=== PATIENT | male | born 1965 | race Caucasian/White ===

== ENCOUNTER 2017-08-05 15:25 | Inpatient (IN) ==
[2017-08-05] MEDS ORDERED: ONDANSETRON 4 MG/2 ML INJECTION IVP PRN (16:11)
[2017-08-05] MEDS ORDERED: ERTAPENEM 1 G in NS 50 ML IV ONE (16:15)
[2017-08-05 16:16] VITALS: BMI 31.3
[2017-08-05] MEDS: MORPHINE SULFATE 4mg INJECTION IVP PRN ×2 (16:24→17:37)
[2017-08-05] MEDS: LR 1,000 ML IV SCH ×3 (16:24→20:30)
[2017-08-05] MEDS ORDERED: FentaNYL 100 MCG/2 ML INJECTION ONE ×2 (17:11→18:54)
--- NOTE | 2017-08-05 17:11 | Anesthesia Preoperative Report ---
Anesthesia Preoperative Record - Date and Time Date: 08/05/17 Preoperative Diagnosis: appendicitis Proposed Procedure: Lap Appy NPO Since Date: 08/05/17 NPO Since Time: 12:00 (small glass of water and small cookie bar) Allergies/Adverse Reactions: Allergies Allergy/AdvReac Type Severity Reaction Status Date / Time No Known Allergies Allergy Verified 08/05/17 16:28 - Vital Signs Vital Signs: Temperature 99.2 F 08/05/17 16:19 Pulse Rate 102 H 08/05/17 16:19 Respiratory Rate 24 08/05/17 16:19 Blood Pressure 135/84 08/05/17 16:19 Pulse Oximetry 96 08/05/17 16:19 Height and Weight: Height 5 ft 10 in Weight 99 kg Body Mass Index 31.3 - Medications Inpatient Medications: Current Medications Lactated Ringer's (Lactated Ringers) 1,000 mls @ 100 mls/hr IV .Q10H RAQUEL Last Admin: 08/05/17 16:24 Dose: 100 mls/hr Lactated Ringer's (Lactated Ringers) 1,000 mls @ 30 mls/hr IV .Q24H RAQUEL Morphine Sulfate (Morphine Sulfate Inj) 1 - 4 mg IVP Q1H PRN PRN Reason: Pain Last Admin: 08/05/17 16:24 Dose: 2 mg Ondansetron HCl (Zofran) 4 mg IVP Q6H PRN PRN Reason: Nausea Home Medications: Home Medications Medication Instructions Recorded Confirmed Type No known Home medications [No home 08/05/17 08/05/17 History meds] Is Patient on Beta Dave?: No - Medical History Respiratory: DENIES: Asthma, Bronchitis, Chronic Obstructive Pulmonary Disease (COPD), Dyspnea, Orthopnea, Pulmonary Embolism, Pneumonia, Upper Respiratory Infection, Pulmonary Edema, Sleep Apnea, Tuberculosis, Other Cardiovascular: DENIES: Abnormal EKG, Angina, Arrhythmia, Congestive Heart Failure, Coronary Artery Disease, Heart Murmur, Hypertension, Hypotension, High Cholesterol, Myocardial Infarction, Rheumatic Fever, Valvular Heart Disease, Other Gastrointestional: DENIES: Obstructive Bowel, Hepatitis, Cirrhosis, Nausea or Vomiting Present, Gastroesophageal Reflux Disease, Gastrointestinal Bleeding, Hiatal Hernia, Ulcer , Morbid Obesity, Other Neuro/Musculoskeletal: Denies: HX.MS.OSAR, Back Problems, Cerebrovascular Accident, Depression, Headaches, Loss of Consciousness, Muscle Weakness, Neuromuscular Disorder, Paralysis, Paresthesia, Syncope, Seizures, Other Renal/Endocrine: DENIES: Diabetes Mellitus Type 1, Diabetes Mellitus Type 2, Renal Failure, Dialysis, Thyroid Disease, Weight Loss, Weight Gain, Other Other History: Reports: Anesthesia Reactions - Surgical History HEENT Surgeries: Reports: Eye Surgery (Right eye removed) Anesthesia Reactions: None Hx Family Anesthesia Reaction: No History of Motion Sickness: No - Social History Smoking Status: Never smoker Substance Use Type: does not use - Pertinent Findings EKG: Sinus Rhythm - Physical Exam Respiratory Exam: Present: lungs clear, bilateral breath sounds equal Cardiovascular Exam: Present: regular rate and rhythm, no murmur - Airway Assessment Mallampati Score: II TMD: 3 Fingerbreadths Neck Extension: fair Overall Assessment: may be difficult mask vent (gutierrez), may be difficult intubation (limited extension) - ASA ASA Score: 2, E - Plan Anesthesia: General Inhalation Gases - Discussion Discussion: Discussed risks/options/alternatives of anesthesia and questions answered. Patient consents. Nursing pain assessment noted. Present for Discussion: spouse Attestation Statement: Prior to the delivery of any anesthetic medication, I examined the patient, developed the plan, obtained the patient's consent and discussed the risk and benefits of the procedure with the patient/guardian. - Additional Information Seen by Anesthesia: Yes
[2017-08-05] MEDS ORDERED: ENOXAPARIN 40 MG/0.4 ML INJECTION SQ ONE (17:41)
[2017-08-05] MEDS ORDERED: BUPIVACAINE 0.5%/EPI 1:200,000 INJ 30ml SDV ONE (17:48)
[2017-08-05] MEDS ORDERED: SUGAMMADEX 200mg/2ml INJECTION IVP ONE ×5 (19:19→20:03)
--- NOTE | 2017-08-05 19:20 | General Surgery Procedure Note ---
Date of Procedure: 08/05/17 Surgeon: Skye Featherer: Gadiel Baig APRN Postoperative Diagnosis: acute ruptured appendicitis with abscess Procedure: Laparoscopic appendectomy Estimated Blood Loss: See Anesthesia Record.
[2017-08-05] MEDS ORDERED: METOPROLOL 5mg/5ml INJECTION IVP ONE (19:47)
[2017-08-05] MEDS ORDERED: NALOXONE 0.4 MG/ML INJECTION ONE (19:52)
--- NOTE | 2017-08-05 19:52 | Consultation ---
DATE OF CONSULTATION 08/05/2017 FINDINGS Mr. Khan is a 52-year-old gentleman whom I was asked to see today by his primary care physician, Dr. Hamilton Talavera, secondary to the patient's history and physical findings of right lower quadrant abdominal pain in conjunction with a CT scan revealing evidence for appendicitis. Upon questioning Mr. Khan he informs me that he began to notice that he was having a component of abdominal pain on Thursday, about five days ago. Patient states that initially he thought perhaps he had the flu. He was having some loose stools in conjunction with this abdominal pain. Did have a component of some nausea. The patient states that over the last several days his pain has become more localized to his right lower quadrant. Patient states that today he was in severe pain. Pain was made worse with any type of movement. Pain is made worse when " someone pushes on his belly." Pain has been somewhat alleviated with pain medications and is improved by lying still. He has been nauseated but has not had emesis today. PAST MEDICAL HISTORY CHRONIC ILLNESSES/SYSTEM DISORDERS 1. History for traumatic injury to right eye requiring multiple prior ophthalmic surgeries and eventually extraction of right eye. The patient informs me that in 2004 following several of his eye surgeries he was "lying down in the hospital a lot" and had developed a blood clot at that time. 2. History for Clostridium difficile colitis. 3. History for right distal radius fracture. PAST SURGICAL HISTORY Placement of Mya filter. Bilateral carpal tunnel release. MEDICATIONS None. ALLERGIES No known drug allergies. SOCIAL HISTORY The patient denies alcohol or tobacco use. FAMILY HISTORY His father in his mid-60s as a result of "heart problems". Patient states his mother as a result of "female cancer." REVIEW OF SYSTEMS Complete review of systems was undertaken with the patient and was essentially negative except as stated in Findings section and Past Medical History section for Constitutional, HEENT, Cardiac, Respiratory, GI, , Musculoskeletal, Hematology/Oncology, Endocrine, and Psychiatric. PHYSICAL EXAMINATION GENERAL: Mr. Khan is a 52-year-old gentleman who does appear to be in a fair amount of discomfort. He does not appear to be in acute distress. VITAL SIGNS: Temperature 99.2, pulse 102, respirations 24, blood pressure 135/ 84, SAO2 96% on room air. HEENT: Left pupil was reactive to light and accommodation. The patient has a prosthetic right eye. NECK: Supple without lymphadenopathy. CHEST: Clear to auscultation bilaterally. HEART: Regular rate and rhythm. Normal S1 and S2 without gallops, murmurs or clicks. ABDOMEN: Palpation of the abdomen does indeed reveal severe localized tenderness to his right lower quadrant. Does have both voluntary and involuntary guarding. Does have a component of some peritoneal signs with rebound tenderness noted within the right lower quadrant. I did not appreciate any evidence for hepatosplenomegaly or other abnormal masses. EXTREMITIES: Without clubbing, cyanosis, or edema. NEURO: Cranial nerves II-XII grossly intact. Patient is without focal motor or sensory deficits. LABORATORY/RADIOGRAPHIC EVALUATION The patient had a CMP obtained earlier today that was essentially within normal limits. The patient had a CBC that revealed a component of some leukocytosis with white count of 12.9. Hemoglobin was normal at 14.1. Platelets were normal 198,000. The patient had a CT scan of his abdomen and pelvis that did reveal evidence for appendicitis with periappendiceal inflammation and developing phlegmon. Findings were suspicious for that of a ruptured appendix. Inflammation did extend extraperitoneally into the pelvis and superiorly to the inferior aspect of the liver. There was a component of some free fluid noted within the pelvis. ASSESSMENT 52-year-old gentleman acute appendicitis. PLAN Laparoscopic appendectomy, possible open. I informed the patient that at this time I would recommend proceeding with surgical intervention for his suspected appendicitis. His clinical history, physical findings, and radiographic findings are all indicative for appendicitis. I informed the patient that there is new evidence in the literature that one can manage early appendicitis with antibiotics in a nonoperative fashion. I would not recommend nonoperative intervention his situation and I do feel that he has andrea peritonitis and would recommend proceeding with surgical intervention. I did discuss in detail with the patient and his what a laparoscopic appendectomy entailed and its associated risks which included but were not inclusive of bleeding, infection, as well as potential conversion to open procedure. The patient has been placed on broad-spectrum antibiotics and currently is receiving Invanz. Will place SCDs prior to induction. Will also give the patient an injection of Lovenox given his prior history for DVT in the past. Will continue with Lovenox postoperatively. MARGIE
[2017-08-05] MEDS ORDERED: PROPOFOL 20 ML ONE (20:33)
[2017-08-05] MEDS ORDERED: PROPOFOL 0 MG/0 ML VIAL ONE (20:33)
[2017-08-05] MEDS ORDERED: SUCCINYLCHOLINE 20mg/mL 10mL INJECTION ONE (20:34)
[2017-08-05] MEDS ORDERED: HYDROCODONE/APAP 5mg/325mg TABLET PO PRN (21:01)
[2017-08-05] MEDS ORDERED: METOCLOPRAMIDE 10mg/2ml INJECTION IVP PRN (21:01)
[2017-08-05] MEDS ORDERED: BUPIV ID ONE (21:24)
[2017-08-05] MEDS ORDERED: EPI ID ONE (21:24)
[2017-08-05] MEDS ORDERED: [UNRECOGNIZED DRUG - OTHER] ID ONE (21:24)
[2017-08-05] MEDS ORDERED: MIDAZOLAM 2mg/2ml INJECTION IVP PRN (21:27)
[2017-08-05] MEDS: MIDAZOLAM 5mg/5ml INJECTION IVP PRN ×3 (21:32→22:36)
--- NOTE | 2017-08-05 21:35 | Consult Note ---
Consult Information - Data of Consult Consult date: 08/05/17 Requesting Physician: Jb Cheung MD Primary Care Provider: Dannie Talavera MD Family Provider: Dannie Talavera MD - Consult Narrative Reason for consult: Intubated, in ICU following lap appendectomy History of present illness: This is a 52 y/o who presented to PCP w/ abdominal pain and concern for acute appendictis and PCP referred to Dr. Cheung for further evaluation and management. Patient taken to OR today per Dr. Cheung and post-surgery was extubated and then re-intubated d/t concerns re: patient being slow coming out of anesthesia and inability to protect his airway. Purportedly patient has family h/o prolonged sedation following surgery/anesthesia and has at least one sibling and another family member w/ pseudocholinesterase deficiency. Patient after intubation was transferred to the CCU. Currently he is intubated on SIMV, Vt of 600 and FiO2 of 50% and on LR at 100 cc/hour and Ertapenem IV q 24 hours. Current temp = 99.4F. UOP approx. 50 cc/hour The Hospitalist team has been consulted by Dr. Cheung to medically manage in the ICU Past Medical History Patient Stated Medical History Cerebrovascular Accident No Paralysis No Seizures No Syncope No Other HEENT Yes: RIGHT EYE REMOVED D/T INJURY Angina No Cardiac Arrhythmia No Congestive Heart Failure No Coronary Artery Disease No Heart Murmur No Hypertension No Hypotension No Myocardial Infarction No Rheumatic Fever No Valvular Heart Disease No Other Cardiology No Asthma No Bronchitis No Chronic Obstructive Pulmonary No Disease (COPD) Pneumonia No Pulmonary Edema No Pulmonary Embolism No Sleep Apnea No Tuberculosis No Other Respiratory No Diabetes Mellitus Type 1 No Diabetes Mellitus Type 2 No Cirrhosis No Gastroesophageal Reflux No Disease Gastrointestinal Bleeding No Hepatitis No Hiatal Hernia No Obstructive Bowel No Ulcer No Other GI No Hx Kidney Stones Yes Osteoarthritis No Other Musculoskeletal No Anesthesia Reactions Yes Depression No Medical History Updates: Patient had injury to right eye in 2004 resulting from trauma/barbed wire in the right orbit - had surgery and eye removed and had prolonged hospitalization and developed DVT and nephrolithiasis during that time. Was on short duration of anticoagulation and had a Mya filter placed. Family History Updates: Patient's sibling and ? of other family members w/ pseudocholinesterase deficiency - Social History Smoking status: Never smoker Review of Systems ROS unobtainable: due to endotracheal tube Medications Home Medications Medication Instructions Recorded Confirmed Type No known Home medications [No home 08/05/17 08/05/17 History meds] Allergies Allergy/AdvReac Type Severity Reaction Status Date / Time No Known Allergies Allergy Verified 08/05/17 16:28 Exam Vital Signs: Temperature 99.2 F 08/05/17 16:19 Pulse Rate 102 H 08/05/17 16:19 Respiratory Rate 24 08/05/17 16:19 Blood Pressure 135/84 08/05/17 16:19 Pulse Oximetry 96 08/05/17 16:19 Telemetry Rhythm: Sinus Rhythm Height/Weight/BMI: Height 1.78 m Weight 99 kg Body Mass Index 31.3 - Constitutional Present: well nourished, well developed Comments: Intubated, sedated - Routine HEENT Exam Head: Present: normocephalic Eye: Present: PERRL (left eye) ENT: Present: mucous membranes moist, nares patent - Routine Neck Exam Present: supple, trachea midline. Absent: JVD - Routine Respiratory Exam Present: patient mechanically ventilated, CTA bilaterally. Absent: rhonchi, wheezes - Routine Cardiovascular Exam Present: RRR, S1, S2 - Routine Abdominal Exam Present: soft, normoactive bowel sounds, non distended - Routine Extremities Exam Absent: cyanosis, clubbing, edema - Routine Skin Exam Present: intact. Absent: cyanosis, erythema - Routine Neurological Exam Intubated and sedated; shakes head no when asked if in any pain Results - Labs CBC & Chem 7: 08/06/17 04:04 08/06/17 04:05 Assessment and Plan Assessment and Plan: A/ 1) Acute Appendicitis with rupture s/p Appendectomy per Dr. Cheung 2) Re-intubated after post-surgical extubation d/t sedation and concern re: protecting the airway 3) H/o trauma to Right eye s/p removal 4) H/o nephrolithiasis 5) H/o DVT d/t prolonged immobilization following trauma and surgery to right eye and prolonged hospitalization and has [place] filter in place. Plan: Continue ICU support continue vent mgt - SIMV 10, 50% FiO2, PEEP of 5, Vt of 600, pS of 8 CXR portable one view now to confirm tube placement ABG now Wean O2 to keep sats >= 92% Lovenox SQ 40 mg once daily Protonix 40mg IV QD SCDs Versed and Fentanyl as directed prn sedation for vent management overnight Lucia Catheter insertion Soft restraints in place labs in AM - CBC, CMP, Mg I have seen the patient in consult, he is currently sedated and intubated and no family present. Hospitalist team to follow along w/ Dr. Cheung. DVT Prophylaxis: SCD's, Lovenox GI Prophylaxis: Protonix Resuscitation Status: Full Code - Physician Narrative Physician: Cindy Monreal MD Narrative: Date: 08/06/17 Time: 1729 Dr. Kessler's note reviewed. Mr. Khan interviewed and examined. CC: Failed intubation HPI: Quinton is a 52-year-old male who underwent laparoscopic appendectomy yesterday evening by Dr. Cheung following 3-4 days of nausea/vomiting followed by increasing abdominal pain. He was evaluated by Dr. Talavera in the office yesterday and referred to the emergency room and subsequently taken to the operating room. He was initially extubated at the end of surgery but reintubated due to concern of pseudocholinesterase deficiency and inability to protect airway and maintain adequate ventilation. The patient was successfully extubated this morning and was on room air when seen earlier this afternoon. He complained of sore throat but denied dyspnea other than pain with cough and deep inspiration. Having no nausea, is tolerating sips of fluid and is passing gas. He was afebrile overnight and has no complaints at the time of reassessment today. PH/SH/FH: agree with that recorded above by Dr. Kessler. In addition he describes no history of alcohol or illicit drug use and is employed at [employer]. His is his alternate decision maker and he is a full code. ROS: 10 point review negative outside of preceding nausea and vomiting for several days prior to acute evaluation. EXAM: General- HEENT-right pupil 3 mm, reactive to light; left pupil 2 mm-prosthetic eye; normal right eye movements-left eye movements slightly delayed and incomplete, conjunctiva clear, sclera anicteric, conjugate gaze, facial structures symmetric , oropharynx clear except a few petechiae on the soft palate posteriorly, neck supple and without adenopathy Lungs-respirations nonlabored, good airflow breath sounds clear Cardiac-regular rhythm, S1-S2 Abd-soft, mildly distended, surgical dressings in place, moderately tender to palpation, bowel sounds present Ext-without edema Skin-without rash or evidence of wounds excluding surgical sites which are dressed Neuro-facial structure symmetric, tongue midline; motor tone normal, MAEW, sensation intact 4 extremities to light touch Psych-calm, cooperative DATA: White count 9.6, hemoglobin 12.7, platelet count 166,000. CMP unremarkable. Pseudocholinesterase pending. Chest x-ray taken this morning demonstrated decreased total lung volume on the ET tube was well-positioned prior to extubation. There was bibasilar atelectasis. 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 Encouraged to continue use of incentive spirometry. Discussed with Dr. Cheung-have asked nursing to initiate clear liquids and advance diet as tolerated. Urine is very dark and urine output has been borderline thus far. Patient had 3- 4 days of nausea/vomiting prior to hospitalization and is likely somewhat prerenal. IV fluids increased to 200 mL per hour for 1 L and will then decrease back to 100 mL per hour. Reassess electrolytes/renal function in the morning. Minor postoperative blood loss anemia. Will review transfer records from Dr. Talavera's office as I suspect hemoglobin was obtained prior to transfer here. Given surgical description of patient's gallbladder anticipate IV antibiotics will be continued for 1 or 2 additional days before conversion to oral antibiotics. Hospital Course Summary Disclaimer: The visit summary below is not to be considered part of the above Progress Note.
[2017-08-05] MEDS ORDERED: FALL RISK - PHARMACY CONSULT XX ONE (23:31)
[2017-08-06] MEDS: MIDAZOLAM 5mg/5ml INJECTION IVP PRN ×5 (00:17→05:15)
[2017-08-06] MEDS: FentaNYL 250 MCG/5 ML INJECTION IVP PRN ×3 (00:20→05:18)
[2017-08-06] MEDS: KETOROLAC 30 MG/ML INJECTION IVP PRN ×3 (07:21→20:48)
--- NOTE | 2017-08-06 07:30 | Operative Note ---
DATE OF SERVICE 08/05/2017 Surgeon Jb Cheung MD BR[employer]IGGER Gadiel Baig APRN PREOPERATIVE DIAGNOSIS Appendicitis. POSTOPERATIVE DIAGNOSIS Perforated appendicitis. PROCEDURE Laparoscopic appendectomy. ANESTHESIA General endotracheal. EBL AND FLUIDS Please see chart. BRIEF HISTORY/INDICATIONS Mr. Khan is a 52-year-old gentleman who I was asked to see today by his primary care physician, Dr. Hamilton Talavera, of [place], [place]. The patient had a classic clinical history, physical findings and CT scan findings for appendicitis. As a result of the above indications, it was recommended to the patient that he undergo surgical intervention. For completeness please refer to notes included in the patient's chart. FINDINGS Upon laparoscopy the patient was found to have an essentially gangrenous appendix. Appendix was adhered along the right lateral abdominal wall. Appendix had perforated and "sealed itself off." There was an associated phlegmonous-like process present as noted on CT scan. A standard appendectomy was able be completed without incident. Otherwise, the small bowel, omentum, colon, peritoneal surfaces which were visualized were within normal limits. DESCRIPTION OF PROCEDURE After informed consent was obtained, the patient was brought to the operative suite and placed on the table in a supine fashion. The abdomen was then prepped and draped in sterile fashion. Formal time-out was then completed. One could see the patient had an umbilical hernia. I elected to use the umbilical hernia as the camera port site. 0.25% Marcaine with epinephrine was injected just beneath the level of the umbilicus. A 3 cm curved incision was then made through the area of analgesia. Dissection was carried down through the deep subcuticular tissues. Base of the umbilicus was then dissected off of the underlying hernia sac. Hernia sac and the omentum that was present in the hernia sac was returned back through a fascial defect that was on the order of about 2 cm in diameter. Fascial defect was dissected out circumferentially. Multiple single interrupted sutures of 0-PDS suture were then placed along the edge of the fascial defect. Next, a 12 mm Kayy port was then placed through the fascial defect into the peritoneum. Pneumoperitoneum was established to a patient pressure of 15 mmHg utilizing carbon dioxide. An additional 5 mm port was then placed within the suprapubic region. An additional 12 mm port was then placed under direct visualization as well within the right upper quadrant of the abdomen. Each port site was preinjected with 0.25% Marcaine with epinephrine and placed under direct visualization. The patient was then placed in Trendelenburg position and rotated towards his left. Attention was then focused to the right lower quadrant. One could see that there was a phlegmonous -like process present with the right colon being adhered to the lateral abdominal wall as well as along the anterior abdominal wall. Colon was dissected away bluntly with a suction tip catheter. One could then see the appendix adhered along the right lateral pelvic wall as well as along the right lateral abdominal wall. The appendix was then began to be dissected away from the abdominal wall. Axel purulent material and stool was then obtained. The patient had a perforation that was contained adjacent to the colon. One could see a hole within the appendix about a [id number] away from the base of the appendix. The appendix was grasped and was quite friable in nature. The base of the appendix was somewhat retrocecal in its location. The white line of Toldt was incised and the right colon was reflected medially so that the base of the appendix could be better visualized. A small opening was then created within the mesoappendix adjacent to the base of the appendix. The base of the appendix appeared to be viable without gangrenous or marked inflammatory changes. Linear stapler with a GI load was then placed across the base of the appendix and fired. The mesoappendix was quite thickened as a result of this phlegmonous process. I elected not to try to divide the entire mesoappendix with the linear stapler with the vascular load. Perhaps three-fourths of the mesoappendix was divided sequentially between Horizon hemoclips. The remaining 25% of the mesoappendix, once it had been "thinned out" and was more visible, was then divided by placing a linear stapler with a vascular load across the remaining mesoappendix and firing. The appendix was then placed within a laparoscopic retrieval bag and removed from the infraumbilical port site. Irrigation was performed and all purulent and fecal-like material was irrigated and suctioned till clear. Given the peritoneal contamination, I elected to place a 19-Andorran drain. 19-Andorran drain was placed through the 12 mm port within the right upper quadrant and allowed to lay adjacent to the right pericolic gutter and the tip of the drain was placed within the pouch of Lupillo /pelvis. Prior areas of dissection were inspected and found to be hemostatic in nature. Attention was directed towards closure. Ports were removed under direct visualization. A drain was secured to the anterior abdominal wall with 2 -0 Prolene. Once the ports had been removed under direct visualization, the previously placed simple interrupted sutures of 0-PDS were then tied sequentially resulting in closure of the fascial defect at the level of the umbilicus. Base of the umbilicus was then imbricated to the underlying fascia. First, a small subcuticular purchase at the base of the umbilicus was obtained followed by a small purchase of the fascia. All skin incisions were closed with leena. The patient is in the process of awakening from his anesthetic and will be sent back to recovery room once deemed in stable condition. Additionally, it should be noted that Gadiel Baig APRN, was present throughout the entire case and played a pivotal role in providing assistance and exposure during the course of the procedure. MARGIE
--- NOTE | 2017-08-06 08:02 | XRay Report ---
Indication: ETT placement PROCEDURE: XR chest 1V: Encounter: Initial Comparison: None Findings: Endotracheal tube in place with the tip projecting 3.3 cm above the cyril. Lungs are hypoinflated with basilar atelectasis. No gross pneumothorax on this somewhat upright view. Possible small left effusion. Cardiac silhouette is mildly enlarged. Pulmonary vascularity cannot be evaluated on this semiupright view. Impression: Endotracheal tube tip projects in appropriate position. There is a preliminary report by virtual radi[facility]. .
[2017-08-06] MEDS: LR 1,000 ML IV SCH ×5 (08:11→23:19)
[2017-08-06] MEDS: ERTAPENEM 1 G in NS 50 ML IV SCH (08:13)
[2017-08-06] MEDS: PANTOPRAZOLE 40 MG INJECTION IVP SCH (08:14)
[2017-08-06] MEDS: ENOXAPARIN 40 MG/0.4 ML INJECTION SQ SCH (08:14)
--- NOTE | 2017-08-06 08:29 | XRay Report ---
Indication: intubated; bibasilar atelectasis vs. Infiltrate PROCEDURE: XR chest 1V: Encounter: Initial Comparison: August 05, 2017 Findings: Endotracheal tube is stable in position. Lungs remain hypoinflated with left lower lobe probable atelectasis. No significant pleural fluid. No gross pneumothorax. Heart size and mediastinal contours are stable. Impression: Continued left basilar probable atelectasis. .
[2017-08-06] MEDS: FentaNYL 100 MCG/2 ML INJECTION IVP PRN ×3 (09:59→16:11)
--- NOTE | 2017-08-06 13:08 | Anesthesia Postoperative Note ---
- Date and Time Date: 08/06/17 Time: 13:07 - Status Patient Participated in Evaluation: Patient Participated in Person Vital Signs: Temperature 98 F 08/06/17 12:00 Pulse Rate 79 08/06/17 12:45 Respiratory Rate 28 H 08/06/17 12:45 Blood Pressure 118/68 08/06/17 12:00 Pulse Oximetry 96 08/06/17 12:45 Respiratory Function: Airway Patent, Regular Respirations Cardiovascular Function: Regular Pulse EKG: Sinus Rhythm Mental Status: Alert and Oriented Pain Intensity: 0 Hydration: IV Infusing Complications During Recover: None Apparent Post Anesthesia Care Notes: S/ P Appendectomy. Pt had to be on vent overnight due to Pseudocholinesterace Deficiency. Instructed pt to report this to future anesthesia providers. Succinylcholine prolonged metabolism. - Follow-Up Instructions Instructions: Per Surgeon
--- NOTE | 2017-08-06 15:37 | Progress Note ---
DATE OF SERVICE 08/06/2017 FINDINGS Mr. Khan was seen on afternoon rounds. He states that his abdomen was feeling significantly better. He is having less pain. He states that he feels "stronger." EXAM VITAL SIGNS: Afebrile, normotensive. Please refer to EMR. ABDOMEN: Soft. Minimal incisional tenderness. No evidence for guarding or rebound. LABORATORY/RADIOGRAPHIC EVALUATION The patient had a CBC today that was unremarkable. White count is now down to 9.6. Hemoglobin is stable at 12.7. CMP obtained and found to be without marked abnormalities. ASSESSMENT 52-year-old gentleman status post laparoscopic appendectomy secondary to perforated appendicitis. Patient with possible pseudocholinesterase deficiency. The patient required prolonged mechanical ventilation postoperatively. PLAN The patient was extubated earlier today. After discussion with family members there is some questionable family history for pseudocholinesterase deficiency. We will order appropriate lab work to rule in or rule out this process with more certainty. Will go ahead and transfer the patient out to the surgical floor. Will advance diet as tolerated. Will continue with broad-spectrum antibiotics. The patient may be able to be discharged tomorrow pending his clinical progress. MARGIE
--- NOTE | 2017-08-06 18:09 | Progress Note ---
Progress Note: Mr. Khan was reevaluated postextubation. Respiratory status is stable. Pseudocholinesterase level pending. Please see my addendum to the consult note written last night for details.
[2017-08-07] MEDS: FentaNYL 100 MCG/2 ML INJECTION IVP PRN (02:00)
[2017-08-07] MEDS: LR 1,000 ML IV SCH (03:29)
[2017-08-07] MEDS: KETOROLAC 30 MG/ML INJECTION IVP PRN (03:34)
[2017-08-07] MEDS ORDERED: IBUPROFEN 600 MG TABLET PO PRN (07:25)
[2017-08-07] MEDS: ERTAPENEM 1 G in NS 50 ML IV SCH (09:01)
[2017-08-07] MEDS: ENOXAPARIN 40 MG/0.4 ML INJECTION SQ SCH (09:01)
[2017-08-07] MEDS: PANTOPRAZOLE 40 MG INJECTION IVP SCH (09:02)
--- NOTE | 2017-08-07 11:31 | General Surgery Progress Note ---
Subjective Narrative: He is still feeling weak, has not ambulated yet today. States his RLQ pain is "nothing like" his pre-admission pain. He is complaining of incisional pain with activity and is very slow and cautions with any activity. Slowly and carefully removing the tape from the drain site was very painful, skin is very sensitive. He ate a regular breakfast without difficulty and has had several doses of Fentanyl, and is requesting a pain pill. Lucia is still in, output is good, color medium stephan. - Vital Signs Last Vital Signs Temp 99.1 F 08/07/17 09:13 Pulse 76 08/07/17 09:13 Resp 16 08/07/17 09:13 BP 145/76 H 08/07/17 09:13 Pulse Ox 98 08/07/17 09:13 - Laboratory Result Diagrams: 08/07/17 07:45 08/06/17 04:05 Laboratory Tests 08/06/17 12:07 Pseudocholinesterase Pending - Abnormal Exam Abdominal: voluntary guarding (quite fearful of anticipated pain) - Normal Exam General: awake, alert, oriented Abdominal: soft, non-tender (with lateral palpation and pelvic rocking), incision(s) (CDI leena in tact), other (JACINDA with serosangouinous fluid) Assessment and Plan (1) Acute appendicitis with rupture Current Visit: Yes Status: Acute (2) History of DVT of lower extremity Current Visit: Yes Status: Acute (3) Respiratory failure requiring intubation Current Visit: Yes Status: Acute Plan: He has a family history of pseudocholinesterase deficiency, his response postop was consistent with pseudocholinesterase decency, requiring re-intubation. The lab has been sent the this, results are pending. He was made inpatient when re-intubated and transferred to CCU He still feels weak, has not ambulated yet, only transferred from bed to wheelchair. JACINDA with serosanguineous fluid. He had a dose of Invanz this morning will change this to Augmentin starting tomorrow. Will re-evaluate this afternoon regarding discharge stability. Reported to Dr. Jeane Talavera's office regarding surgical findings, re-intubation, and the pseudocholinesterase test still pending. They will do a routine post hospital visit 08/18 and discuss the pseudocholinesterase test results. Hospital Course Summary Disclaimer: The visit summary below is not to be considered part of the above Progress Note. Hospital Course: 08/05/2017 Lap appy, ruptured appendix. Had to be re-intubated post op, transferred to CCU. 08/06 POD #1 Extubated this am. stable, transferred to surgical floor. 08-07-2017 Surgery note: He is weak this morning. He has a family history of pseudocholinesterase deficiency, his response postop was consistent with pseudocholinesterase decency , requiring re-intubation. The lab has been sent the this, results are pending. He had a dose of Invanz this morning will change this to Augmentin starting tomorrow. Will re-evaluate this afternoon regarding discharge stability. Reported to Dr. Jeane Talavera's office regarding surgical findings, re-intubation, and the pseudocholinesterase test still pending. They will do a routine post hospital visit 08/18 and discuss the pseudocholinesterase test results.
--- NOTE | 2017-08-07 11:46 | Progress Note ---
- Date 08/07/17 Subjective: Patient is seen lying in bed this morning. He reports he is doing well. He is only having a mild amount of pain in the right upper quadrant which he thinks is related to tape. No chest pain, cough, nausea or vomiting. He reports his appetite is good. He ate 100% of breakfast. Having some gas after breakfast, no BM yet. Objective Vital signs: Temperature 99.1 F 08/07/17 09:13 Pulse Rate 76 08/07/17 09:13 Respiratory Rate 16 08/07/17 09:13 Blood Pressure 145/76 H 08/07/17 09:13 Pulse Oximetry 98 08/07/17 09:13 Height/Weight/BMI: Height 1.78 m Weight 104.9 kg Body Mass Index 31.3 - Constitutional Present: no acute distress, well nourished, well developed - Routine HEENT Exam Head: Present: normocephalic, atraumatic - Routine Respiratory Exam Present: CTA bilaterally. Absent: wheezes - Routine Cardiovascular Exam Present: RRR, no murmur - Routine Abdominal Exam Present: soft, normoactive bowel sounds, tenderness (slight R sided and epigastic), non distended Comments: JACINDA drain with minimal serosanguineous drainage. Surgical sites covered. Sites not undressed for exam as surgery team evaluated patient this morning. - Routine Extremities Exam Present: no edema, normal capillary refill - Routine Skin Exam Present: dry, warm - Routine Neurological Exam Present: alert, oriented X3 - Routine Lymphatic Exam Lymphatic: Absent: adenopathy - Routine Psychiatric Exam Present: normal affect, cooperative Results - Labs CBC & Chem 7: 08/07/17 07:45 08/06/17 04:05 - ABG Interpretation ABG results: 08/05/17 22:20 ABG pH 7.400 ABG pCO2 45 ABG pO2 111 H ABG HCO3 27.9 H ABG Total CO2 29.3 H ABG O2 Saturation 98.0 ABG Base Excess 2.6 H Assessment and Plan Assessment and Plan: Assessment Acute Appendicitis with rupture s/p Appendectomy per Dr. Cheung Re-intubated after post-surgical extubation d/t sedation and concern re: protecting the airway. Possible pseudocholinesterase deficiency. H/o trauma to Right eye s/p removal H/o nephrolithiasis H/o DVT d/t prolonged immobilization following trauma and surgery to right eye and prolonged hospitalization and has Mya filter in place. Plan Continues on IV ertapenem. IV fluids and Toradol have been discontinued. Last pain medications given documented: Fentanyl at 2 AM, Toradol at 3:30am. Has not requested hydrocodone. Overall doing well. - Physician Narrative Physician: Cindy Monreal MD Narrative: Date: 08/07/17 Time: 1630 I have independently evaluated and examined this patient. I reviewed the chart, the patient's history, and the [employer] E[employer]IST/PA's documented findings as above. We discussed and formulated the assessment and plan as above with additions as below: Mr. Khan reports feeling much better today. Surgical drain remains in but he denies other concerns and specifically denied dyspnea or nausea. He's tolerating food without difficulty and has been ambulating. Maximum temperature 99.9 yesterday evening NAD, alert; oxygen saturation 97% on room air Respirations nonlabored, good airflow, breath sounds clear Abdomen soft White count normal at 6.5 without left shift. Surgical pathology consistent with acute appendicitis without evidence of malignancy. Medically stable; anticipate pseudocholinesterase level will need to be followed up as an outpatient. Hospital Course Summary Disclaimer: The visit summary below is not to be considered part of the above Progress Note.
[2017-08-07] MEDS ORDERED: IBUPROFEN 800 MG TABLET PO PRN (12:22)
[2017-08-07] MEDS ORDERED: POLYETHYL GLYCOL 3350 17gm PACKET PO SCH (12:30)
--- NOTE | 2017-08-07 20:11 | Progress Note ---
DATE OF SERVICE 08/07/2017 FINDINGS Mr. Khan was seen earlier this evening on rounds. He denied any element of abdominal pain with the exception that he noted discomfort when he "got out of bed." Patient states he was feeling significantly better. EXAM VITAL SIGNS: Afebrile, normotensive. Please refer to EMR. ABDOMEN: Soft. Minimal incisional tenderness. Incisions are clean, dry, and intact. There was some ecchymosis at the infraumbilical incision but no marked erythema. LABORATORY/RADIOGRAPHIC EVALUATION The patient had a CBC today and his white count returned to 6.5. ASSESSMENT 52-year-old gentleman status post laparoscopic appendectomy secondary to perforated appendicitis. Patient overall doing quite well. PLAN Will go ahead and DC to home. Would recommend continuing with ongoing broad- spectrum antibiotics. Prescription was given for Augmentin. Will leave drain in at this time. Patient to follow up next week with my nurse practitioner during my absence. MARGIE
[2017-08-07 20:25] VITALS: BP 143/82; PULSE 86; RESP 20; TEMP 98.9; O2SAT 98
== END 2017-08-07 20:50 | disposition home or self-care (01) | DRG 981 ==
LOC: SRG → CCU 20:40 → SRG 08-06 16:33
PROVIDERS: ADMIT Surgery; ATTEND Surgery